=== PATIENT | female | born 1995 | race Caucasian/White ===

== ENCOUNTER 2022-06-11 18:36 | Emergency (ER) | payer MEDICAID, OTHER ==
[~2022-06-11] VITALS: Ht 157.5 cm; Wt 90.0 kg
[2022-06-11 22:45] VITALS: BP 121/77
[2022-06-11] MEDS ORDERED: BACITRACIN ZINC OINT UDPKT TOP NR (22:45)
[2022-06-11] MEDS ORDERED: BACITRACIN 15GM TUBE TOP ONE (22:45)
== END 2022-06-11 22:47 | disposition home or self-care (01) ==
LOC: ER 18:47
DX: T16.2XXA Foreign body in left ear, initial encounter (principal); X58.XXXA Exposure to other specified factors, initial encounter; Y93.89 Activity, other specified; Y92.89 Other specified places as the place of occurrence of the external cause; Y99.8 Other external cause status
CPT/HCPCS: 81025; 99282; Z7610